=== PATIENT | female | born 1980 | race Caucasian/White ===

== ENCOUNTER 2024-05-24 13:06 | Outpatient (CLI) | payer OTHER, SELFPAY ==
--- NOTE | 2024-05-24 | MM_ITS ---
WS: [id number] BILATERAL 3D TOMOSYNTHESIS DIGITAL SCREENING MAMMOGRAPHY WITH CAD CLINICAL INFORMATION: ANNUAL SCREEN HISTORY: Screening mammogram. No current complaints. COMPARISON: 2012 TECHNIQUE: Bilateral CC and MLO views. FINDINGS: The breasts are composed of heterogeneous fibroglandular density tissue, which can limit the detection of small underlying mass lesions. No suspicious mass, asymmetry, calcifications, or architectural distortion. No evidence of malignancy. Biopsy clips LEFT breast MM/MM scr BI tomosynthesis [id number] IMPRESSION: DENSITY: The breasts are heterogeneously dense, which may obscure small masses. BI-RADS: 2 - Benign FOLLOW UP: 1 Year Follow-up Recommend return to annual screening mammography.
== END 2024-05-24 13:07 | disposition home or self-care (01) ==
LOC: RAD 13:07
PROVIDERS: Family Provider Internal Medicine; PCP Urology; Visit Provider Nurse Practitioner
DX: Z12.31 Encounter for screening mammogram for malignant neoplasm of breast (principal)
CPT/HCPCS: 77063; 77067

== ENCOUNTER 2024-10-19 15:43 | Emergency (ER) | payer OTHER, SELFPAY ==
[2024-10-19 15:49] VITALS: BP 134/88; PULSE 102; RESP 16; TEMP 36.5; O2SAT 100; BMI 25.0
--- OUTSIDE RECORDS SUMMARY | 2024-10-19 15:52 | XMS_ITS | Clinical Summary ---
Author Organization [facility] Address [address] [place]: Epic Prelude ADT [place] [address] Care Team Providers Care Supervisor Safety Deposit Name Role Phone Derrick Zacarias MD Primary Care Provider [phone] Allergies Active Allergy Reactions Criticality Noted Date Comments Cyclobenzaprine Other (See Comments) 08/28/2009 ineffective Sumatriptan Other (See Comments) 10/08/2011 Ineffective, and has a sensation that throat is swelling. Medications buPROPion HCL SR 150 mg tablet,12 hr sustained-relea se (WELLBUTRIN SR)Indications: Hyperparathyroi dism, unspecified,Kaye linh hyperparathyroi dism,Calculus of kidney,Former smoker Take 150 mg by mouth 2 times daily. Active dihydroergotami ne mesylate (DIHYDROERGOTAM INE BOTH NOSTRIL)Indicat ions:Hyperparat hyroidism, unspecified,Kaye linh hyperparathyroi dism,Calculus of kidney,Former smoker Administer 4 mg in each nostril. Active hydrOXYzine HCL (ATARAX) 25 mg tabletIndicatio ns:Hyperparathy roidism, unspecified,Kaye linh hyperparathyroi dism,Calculus of kidney,Former smoker Take 25 mg by mouth daily at bedtime. Active venlafaxine 75 mg Extended Release 24 hour tabletIndicatio ns:Hyperparathy roidism, unspecified,Kaye linh hyperparathyroi dism,Calculus of kidney,Former smoker Take 75 mg by mouth daily with breakfast. Active Active Problems Problem Noted Date Diagnosed Date Migraine 10/25/2009 Fibromyalgia 08/28/2009 Anxiety reaction 08/28/2009 PTSD (post-traumatic stress disorder) 08/28/2009 Spasm of muscle 07/17/2009 Chronic back pain 07/01/2009 Encounters Date Type Department Care Team Description 10/03/2024 External Device Data [facility] ABSTRACTION Provider, Abstract 09/07/2024 External Device Data [facility] ABSTRACTION Provider, Abstract 09/06/2024 External Device Data [facility] ABSTRACTION Provider, Abstract 09/05/2024 External Device Data [facility] ABSTRACTION Provider, Abstract 08/01/2024 External Device Data [facility] ABSTRACTION Provider, Abstract 08/01/2024 External Device Data [facility] ABSTRACTION Provider, Abstract 08/01/2024 External Device Data [facility] ABSTRACTION Provider, Abstract 07/31/2024 Results Follow-Up [facility] [address] [place] [phone] Marcela Escobedo MD VITAMIN D 25 HYDROXY, PTH INTACT, COMPREHENSIVE METABOLIC PANEL, PROTEIN ELECTROPHORESIS W/REFLEX,SERUM 07/28/2024 1:40 PM CDT Office Visit [facility] [address] [place] [phone] Marcela Escobedo MD Hyperparathyroidism, unspecified (Primary Dx); Primary hyperparathyroidism; Calculus of kidney; Former smoker from Last 3 Months Family History Medical History Relation Name Comments Healthy Father Other Maternal Grandfather macular degeneration Respiratory Disease Maternal Grandfather Other Maternal Grandmother fibromy algia Healthy Mother Diabetes Paternal Grandfather Heart Disease Paternal Grandfather Heart Disease Paternal Grandmother Other Paternal Grandmother catarac ts Breast Cancer Neg Hx Colon Cancer Neg Hx Relation Name Status Comments Father Maternal Grandfather Alive Maternal Grandmother Alive Mother Paternal Grandfather Paternal Grandmother Social History Tobacco Use Types Packs/Day Years Used Date Smoking Tobacco: Every Day Cigarettes Tobacco Cessation:Ready to Q uit: Not Asked; Counseling Given: Not Answered Comments:Quit smoking: off and on Alcohol Use Standard Drinks/Week Comments No 0 (1 standard drink = 0.6 oz pur e alcohol) Comments Unknown Sex and Gender Information Value Date Recorded Sex Assigned at Not on file 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 Gender Identity Not on file Sexual Orientation Not on file Last Filed Vital Signs Vital Sign Reading Time Taken Comments Blood Pressure 110/80 07/28/2024 1:39 PM CDT Pulse - - Temperature - - Respiratory Rate - - Oxygen Saturation - - Inhaled Oxygen Concentration - - Weight 72.1 kg (159 lb) 07/28/2024 1:39 PM CDT Height 167.6 cm (5' 6 ) 07/28/2024 1:39 PM CDT Body Mass Index 25.66 07/28/2024 1:39 PM CDT Plan of Treatment Upcoming Encounters Date Type Department Care Team (Late st Contact Info) Description 01/29/2025 2:30 PM CDT Office Visit [facility] [address] [place] [address] Marcela Escobedo MD [address] [place] [address] Health Maintenance Due Date Last Done Comments Pre-Diabetes and Diabetes Screening 1981 Traditional Medicare (ACO) Annual Wellness Visit 2000 HPV/Cotest (21-29) 2002 HPV/Cotest (30-65) 2011 CERVICAL CANCER SCREENING 09/24/2012 PAP SMEAR 09/24/2012 09/24/2009 BREAST CANCER SCREENING 12/12/2022 12/13/19 22, 10/14/2011, 10/14/2011 DTAP/TDAP/TD VACCINES (2 - Td or Tdap) 02/22/2023 02/22/2013 INFLUENZA VACCINE (#1) 2024 HEPATITIS B VACCINES Completed 07/05/1998, 02/07/1998, 12/20/1997 HPV VACCINES Aged Out No longer eligi ble based on patient's age to complete this topic Procedures Procedure Name Priority Date/Time Associated Diagnosis Comments COMPREHENSIVE METABOLIC PANEL Routine 07/28/2024 2:20 PM CDT Hyperparathyroidis m, unspecified Primary hyperparathyroidis m Calculus of kidney Former smoker PTH INTACT Routine 07/28/2024 2:20 PM CDT Hyperparathyroidis m, unspecified Primary hyperparathyroidis m Calculus of kidney Former smoker VITAMIN D 25 HYDROXY Routine 07/28/2024 2:20 PM CDT Hyperparathyroidis m, unspecified Primary hyperparathyroidis m Calculus of kidney Former smoker PROTEIN ELECTROPHORESIS W/REFLEX,SERUM Routine 07/28/2024 2:20 PM CDT Hyperparathyroidis m, unspecified Primary hyperparathyroidis m Calculus of kidney Former smoker MAMMO 3D REGINA DIAGNOSTIC BILAT W OR WO CAD Routine 12/12/2021 2:56 PM CDT Other specified disorders of breast from Last 3 Months or Most Recently Relevant to Health Maintenance Results * VITAMIN D 25 HYDROXY (07/28/2024 2:20 PM CDT) VITAMIN D, 25 OH, TOTAL 34 30 - 100 ng/mL [facility] Comment: Vitamin D Status 25-OH Vitamin D: Deficiency: <20 ng/mL Insufficiency: 20 - 29 ng/mL Optimal: > or = 30 ng/mL For 25-OH Vitamin D testing on patients on D2-supplementation and patients for whom quantitation of D2 and D3 fractions is required, the [facility] 25-OH VIT D, (D2,D3), LC/MS/MS is recommended: order code 53099 (patients >2yrs). See Note 1 Note 1 For additional information, please refer to http://education.Fanaticall/faq/WEE905 (This link is being provided for informational/ educational purposes only.) FASTING:NO FASTING: NO Test Performed at: [facility] [address] [place] [address] Socorro Degroot MD Blood 07/28/2024 2:20 PM CDT 07/28/2024 2:26 PM CDT us Marcela Escobedo MD CHEMISTRY ORDERABLES Final Resul t [facility] [phone] [facility] [address] [place] [address] * PROTEIN ELECTROPHORESIS W/REFLEX,SERUM (07/28/2024 2:20 PM CDT) TOTAL PROTEIN 6.9 6.1 - 8.1 g/dL [facility] ALBUMIN SPE 4.2 3.8 - 4.8 g/dL [facility] ALPHA 1 GLOBULIN SPE 0.3 0.2 - 0.3 g/dL [facility] ALPHA 2 GLOBULIN SPE 0.8 0.5 - 0.9 g/dL [facility] Beta 1 Globulin 0.5 0.4 - 0.6 g/dL [facility] Beta 2 Globulin 0.4 0.2 - 0.5 g/dL [facility] GAMMA GLOBULIN 0.9 0.8 - 1.7 g/dL [facility] SPE INTERP [facility] Comment: No restricted band (M-spike) seen. FASTING:NO FASTING: NO Test [facility]formed at: [facility] [address] Socorro Degroot MD Blood 07/28/2024 2:20 PM CDT 07/28/2024 2:26 PM CDT us Marcela Escobedo MD CHEMISTRY ORDERABLES Final Resul t [facility] [phone] [facility] [address] * PTH INTACT (07/28/2024 2:20 PM CDT) Pathologist [facility] PTH INTACT 39 16 - 77 pg/mL [facility] Comment: Interpretive Guide Intact PTH Calcium ------- Normal Parathyroid Normal Normal Hypoparathyroidism Low or Low Normal Low Hyperparathyroidism Primary Normal or High High Secondary High Normal or Low Tertiary High High Non-Parathyroid Hypercalcemia Low or Low Normal High Test Performed at: [facility] [address] Socorro Degroot MD Blood 07/28/2024 2:20 PM CDT 07/28/2024 2:26 PM CDT us Marcela Escobedo MD CHEMISTRY ORDERABLES Final Resul t [facility] [phone] [facility] [address] [address] [facility] [place] [address] * (ABNORMAL) COMPREHENSIVE METABOLIC PANEL (07/28/2024 2:20 PM CDT) Pathologist [facility] GLUCOSE 90 65 - 139 mg/dL [facility] Comment: Non-fasting reference interval BUN 12 7 - 25 mg/dL [facility] CREATININE 0.70 0.50 - 0.99 mg/dL [facility] GFR 110 > OR = 60 mL/min/1. 73m2 [facility] BUN/CREAT RATIO SEE NOTE: 6 - (calc) [facility] Comment: Not Reported: BUN and Creatinine are within reference range. SODIUM 140 135 - 146 mmol/L [facility] POTASSIUM 3.7 3.5 - 5.3 mmol/L [facility] CHLORIDE 103 98 - 110 mmol/L [facility] CO2 30 20 - 32 mmol/L [facility] CALCIUM 9.4 8.6 - 10.2 mg/dL [facility] TOTAL PROTEIN 7.0 6.1 - 8.1 g/dL [facility] ALBUMIN 4.6 3.6 - 5.1 g/dL [facility] GLOBULIN 2.4 1.9 - 3.7 g/dL (calc) [facility] ALBUMIN/GLOBULIN RATIO 1.9 1.0 - 2.5 (calc) [facility] BILIRUBIN TOTAL 0.3 0.2 - 1.2 mg/dL [facility] ALKALINE PHOSPHATASE 141(H) 31 - 125 U/L [facility] AST 24 10 - 30 U/L [facility] ALT 25 6 - 29 U/L [facility] Comment: FASTING:NO FASTING: NO Test Performed at: [facility] [address] [place] [address] Nicko Beltran Blood 07/28/2024 2:20 PM CDT 07/28/2024 2:26 PM CDT us Marcela Escobedo MD CHEMISTRY ORDERABLES Final Resul t [facility] [phone] [facility] [address] [place] [address] * (ABNORMAL) MAMMO DIAG BILAT 3D REGINA W OR WO CAD (12/12/2021 2:56 PM CDT) Anatomical Region Laterality Modality Breast Bilateral Mammography 12/12/2021 2:56 PM CDT Impressions 12/12/2021 3:32 PM CDT IMPRESSION: BI-RADS 4. Suspicious calcifications left breast. Advise further evaluation with biopsy, this will be amenable to stereotactic guidance. Findings were discussed with the patient following completion of the exam. Patient was hesitant for proceeding with the biopsy, however will think about the biopsy and left the schedulers know. Procedure will be scheduled. [id number] Narrative 12/12/2021 3:32 PM CDT EXAMINATION: Bilateral diagnostic mammography with tomosynthesis. Films were reviewed by CAD. Ultrasound right breast and bilateral axilla. INDICATION: Right breast lump COMPARISON: Mammograms from 2012; left side FINDINGS: The breast tissue is extremely dense, which can limit the sensitivity of mammography. Right breast: No mammographic suspicious findings in the region of lump right breast. Ultrasound shows dense fibroglandular breast tissue with no suspicious sonographic findings. Left breast: Biopsy changes with marker in the left anterior to mid superior breast noted. There are adjacent calcifications that do not appear suspicious. There is new grouping of calcifications in the left mid to posterior upper outer breast that for further evaluated by spot magnification images. On the spot magnification images there is a 4.2 mm grouping of fine heterogenous calcifications present 6.7 cm superior to nipple at approximately 11 to 12:00 position. Ultrasound was done. Ultrasound left breast in the region of calcifications shows no sonographic suspicious findings. Ultrasound bilateral axilla show no abnormal lymph nodes. Procedure Note Kristie Hartley MD - 12/12/2021 EXAMINATION: Bilateral diagnostic mammography with tomosynthesis. Films were reviewed by CAD. Ultrasound right breast and bilateral axilla. INDICATION: Right breast lump COMPARISON: Mammograms from 2012; left side FINDINGS: The breast tissue is extremely dense, which can limit the sensitivity of mammography. Right breast: No mammographic suspicious findings in the region of lump right breast. Ultrasound shows dense fibroglandular breast tissue with no suspicious sonographic findings. Left breast: Biopsy changes with marker in the left anterior to mid superior breast noted. There are adjacent calcifications that do not appear suspicious. There is new grouping of calcifications in the left mid to posterior upper outer breast that for further evaluated by spot magnification images. On the spot magnification images there is a 4.2 mm grouping of fine heterogenous calcifications present 6.7 cm superior to nipple at approximately 11 to 12:00 position. Ultrasound was done. Ultrasound left breast in the region of calcifications shows no sonographic suspicious findings. Ultrasound bilateral axilla show no abnormal lymph nodes. IMPRESSION: BI-RADS 4. Suspicious calcifications left breast. Advise further evaluation with biopsy, this will be amenable to stereotactic guidance. Findings were discussed with the patient following completion of the exam. Patient was hesitant for proceeding with the biopsy, however will think about the biopsy and left the schedulers know. Procedure will be scheduled. [id number] Crystal [facility]OK[facility] MAMMO ORDERABLES Fi nal Result from Last 3 Months or Most Recently Relevant to Health Maintenance Insurance MEDICARE PART A AND B * Guarantor: [employer] [facility] [employer] (C) Account Type Relation to Patient Date of Phone Billing Address Corporate Other DEFAULT ADDRESS [address] [employer] * Guarantor: [employer] M (C) Account Type Relation to Patient Date of Phone Billing Address [employer] Other DEFAULT ADDRESS [address] [employer] Care Teams Supervisor Safety Deposit Relationship Specialty Start Date End Date Derrick Zacarias MD [address] [address] PCP - General Family Practice 01/14/16
--- NOTE | 2024-10-19 17:06 | XRR_ITS ---
PROCEDURE INFORMATION: Exam: XR Chest Exam date and time: 10/19/2024 5:14 PM Age: 44 years old Clinical indication: Fever TECHNIQUE: Imaging protocol: Radiologic exam of the chest. Views: 1 view. COMPARISON: CT abdomen pelvis con [id number] 11/11/2020 2:01 PM FINDINGS: Lungs: Unremarkable. No consolidation. Calcified granuloma in the right apex medially. Pleural spaces: Unremarkable. No pleural effusion. No pneumothorax. Heart/Mediastinum: Unremarkable. No cardiomegaly. Bones/joints: Unremarkable. XR/XR chest 1V portable [id number] IMPRESSION: No acute findings.
[2024-10-19 17:56] LABS: Hematocrit 46.2 % (36-47); Hemoglobin 15.00 g/dL (11.27-16.99); Mean Corpuscular HGB Conc 32.5 g/dL (30-55); Mean Corpuscular Hemoglobin 31.1 pg (27-33); Mean Corpuscular Volume 95.7 fl (85-98); Nucleated Red Blood Cells % 0 %; Platelet Count 323 10^3/cmm (157-399); Red Blood Count 4.83 10^6/uL (3.85-5.65); White Blood Count 7.57 10^3/uL (3.29-11.43)
[2024-10-19] MEDS: ondansetron 2 mg/ML SDV 2 mL 4 MG IVP (18:13)
[2024-10-19 18:18] LABS: Alanine Aminotransferase 23 U/L (0-33); Albumin Level 4.2 g/dL (3.5-5.2); Alkaline Phosphatase 192 U/L (35-105); Anion Gap 18.4 (5-19); Aspartate Amino Transferase 20 U/L (0-32); Blood Urea Nitrogen 10 mg/dL (6-20); Calcium 8.8 mg/dL (8.5-10.5); Carbon Dioxide 20 mmol/L (22-29); Chloride 104 mmol/L (98-107); Creatinine Clr Calc Pharmacy 145.8971; Globulin 2.9 g/dL (1.3-4.6); Glucose 96 mg/dL (65-115); Osmolality Calculated 287 mOsm/kg (285-295); Potassium 3.4 mmol/L (3.5-5.1); Sodium 139 mmol/L (136-145); Total Protein 7.1 g/dL (6.6-8.7)
[2024-10-19 18:23] VITALS: BP 118/78; PULSE 84; TEMP 37.1; O2SAT 100
[2024-10-19 18:30] VITALS: BP 104/62; PULSE 85; O2SAT 100
[2024-10-19 18:38] LABS: Respiratory Syncytial Virus Ce NEGATIVE (Negative); SARS-CoV-2 PCR NEGATIVE (Negative)
[2024-10-19 20:18] VITALS: BP 116/79; PULSE 90; RESP 18; O2SAT 98
[2024-10-19] MEDS: morphine 4 mg/mL SDV 1 mL IVP (20:57)
--- NOTE | 2024-10-19 21:10 | ED_ITS ---
HPI - Headache 2 General: Chief Complaint: Headache Stated Complaint: va sent, ENNIS, stiff neck, n/d Time Seen by Provider: 10/19/24 16:34 History of Present Illness: 44-year-old female patient presents to e [facility] department with headache generalized malaise. Patient states that she has history of migraine headaches. And her headache feels like a typical migraine headache however her generalized malaise body aches all over weakness and tiredness is not normal for her patient states she has had multiple tick bites over the last several weeks and is concerned that she has tickborne illness. Patient denies any rash, fever, abdominal pain, nausea vomiting diarrhea. Related Data Home Medications ?Medication ?Instructions ?Recorded ?Confirmed ibuprofen 600 mg tablet 600 mg PO Q6H PRN Fever Or P ain 12/03/20 10/19/24 Previous Rx's ?Medication ?Instructions ?Recorded doxycycline hyclate 100 mg capsule 100 mg PO BID 10 da ys #20 caps 10/19/24 Allergies Allergy/AdvReac Type Severity Reaction Status Date / Time cyclobenzaprine Allergy Unknown Verified 10/19/24 15:53 sumatriptan Allergy Unknown Verified 10/19/24 15:53 zolmitriptan (From [facility]) Allergy Unknown Verified 10/19/24 15:53 Review of Systems 2 General: Reports: 10 or more systems reviewed and unremarkable except in HPI and below Physical Exam 2 Const: COMMON NORMALS: no acute distress, patient oriented x3, no limitations, healthy appearing and alert GENERAL APPEARANCE: cooperative, comfortable, well kempt and well developed; not ill appearing ORIENTATION/CONSCIOUSNESS: Yes awake, Yes oriented to person, Yes oriented to place and Yes oriented to time HENMT: COMMON NORMALS: normocephalic, atraumatic, hearing grossly normal bilaterally, Normal external nose present, Normal nasal mucous membranes and turbinates present and moist oral mucous membranes HEAD & SCALP: normal to inspection, normocephalic and atraumatic FACE & SINUS: normal facial exam, sinuses nontender and face symmetric NOSE: Normal external nose present, Normal nares present, Normal nasal mucous membranes and turbinates present, No nasal discharge present and Abnormal external nose present Eye: COMMON NORMALS: EOMs intact bilaterally and no scleral icterus GENERAL EYE: appearance normal, both eyes and all related structures Neck/C-Spine: COMMON NORMALS: full ROM, no lymphadenopathy, supple, no meningeal signs, no JVD and Thyroid normal GENERAL: Yes normal visual inspection and Yes trachea midline THYROID: Thyroid normal CERVICAL SPINE: Yes cervical ROM normal Lymph: LYMPHATIC: no lymphadenopathy noted and no lymphedema noted Chest: COMMONS NORMALS: normal inspection of the chest and normal palpation of entire chest wall Resp: COMMON NORMALS: normal respiratory effort, No retractions, No use of accessory muscles and clear to auscultation bilaterally EFFORT & INSPECTION: Yes able to speak in complete sentences and Yes symmetric chest movement A USCULTATION: clear to auscultation bilaterally Cardio: COMMON NORMALS: no JVD, regular rate and regular rhythm RATE: r egular rate RHYTHM: regular rhythm GI: COMMON NORMALS: Normal to inspection, nondistended, normoactive bowel sounds present, Soft to palpation and non-tender PALPATION: Yes Soft to palpation : COMMON NORMALS: Yes no CVA tenderness BLADDER/KIDNEY EXAM: Yes no CVA tenderness Back/Pelvis: COMMON NORMALS: no CVA tenderness, thoracic and lumbar spine normal to inspection, no thoracic nor lumbar tenderness and thoraco-lumbar ROM normal THORACIC SPINE/UPPER BACK: Yes normal to inspection LUMBAR SPINE/LOWER BACK: Yes normal to inspection Extremity: COMMON NORMALS: normal to inspection, full ROM and capillary refill normal GENERAL: Yes normal exam except as noted Neuro: COMMON NORMALS: patient oriented x3 SENSORIUM/ORIENTATION: Yes alert, Yes oriented to person, Yes oriented to place and Yes oriented to time MENINGEAL SIGNS: Yes no meningeal signs CRANIAL NERVES: Yes CN normal except as noted SPEECH: speech normal GAIT: Yes Normal gait present Psych: COMMON NORMALS: mental status grossly normal, Normal thought process present, cooperative, normal affect, speech normal, activity/motor behavior normal, denies hallucinations, denies homicidal ideation and denies suicidal ideation APPEARANCE: Yes grossly normal and Yes well kempt ATTITUDE: Yes calm ACTIVITY/MOTOR BEHAVIOR: Yes appropriate eye contact SPEECH: Yes normal speech THOUGHT PROCESS: Normal thought process present THOUGHT CONTENT: Yes Normal thought content present ATTENTION/CONCENTRATION: Yes attention grossly intact MEMORY/COGNITION: Yes memory grossly intact I NSIGHT: Good insight present (Psych) JUDGEMENT: Good judgement present (Psych) Skin: COMMON NORMALS: no rashes or lesions noted, no wounds, turgor normal, no jaundice, no petechiae and no mottling GENERAL SKIN EXAM: no rashes or lesions noted and turgor normal Course 2 Vital Signs: Vital signs: Vital Signs Temperature 98.7 F 10/19/24 18:23 Pulse Rate 97 10/19/24 21:28 Respiratory Rate 18 10/19/24 21:28 Blood Pressure 116/81 10/19/24 21:28 Pulse Oximetry 95 10/19/24 21:28 Oxygen Delivery Me thod Room Air 10/19/24 15:49 MDM - Headache Medical Decision Making Patient is well-appearing nontoxic in no acute distress. 44-year-old female patient presents to emergency department with headache generalized malaise. Patient states that she has history of migraine headaches. And her headache feels like a typical migraine headache however her generalized malaise body aches all over weakness and tiredness is not normal for her patient states she has had multiple tick bites over the last several weeks and is concerned that she has tickborne illness. Patient does not have any signs of meningeal irritation patient denies any rash, fever, abdominal pain, nausea vomiting diarrhea. Abdomen is soft and nontender patient has no focal neurodeficits noted. Patient does state that this is like a typical migraine headache for her therefore I do not feel like CT imaging is warranted at this time patient was given morphine for pain and states that this did help her head patient's headache went from a pain scale of 8 to a pain of 2 patient has had no episodes of nausea vomiting while here in the emergency department. Patient has no rashes noted. Patient's vital signs are stable patient is afebrile I will send a tick panel off for testing for tickborne illness but given patient's presenting complaints and recent tick bites I will go ahead and start her on doxycycline at this time. I discussed with patient return precautions as well as home care and follow-up patient states that she is ready to go home. Patient is medically cleared and appropriate for discharge Lab Data 10/19/24 17:50 10/19/24 17:50 Radiology Impressions Chest X-Ray 10/19/24 17:06 IMPRESSION: No acute findings. Laboratory Results WBC 7.57 10^3/uL (3.29-11.43) 10/19/24 17:50 RBC 4.83 10^6/uL (3.85-5.65) 10/19/24 17:50 Hgb 15.00 g/dL (11.27-16.99) 10/19/24 17:50 Hct 46.2 % (36-47) 10/19/24 17:50 MCV 95.7 fl (85-98) 10/19/24 17:50 MCH 31.1 pg (27-33) 10/19/24 17:50 MCHC 32.5 g/dL (30-55) 10/19/24 17:50 RDW 12.9 % (12.1-15.1) 10/19/24 17:50 Plt Count 323 10^3/cmm (157-399) 10/19/24 17:50 MPV 10.3 fL (7.4-10.4) 10/19/24 17:50 Neut % (Auto) 71.8 % 10/19/24 17:50 Lymph % (Auto) 18.6 % 10/19/24 17:50 Burke % (Auto) 7.3 % 10/19/24 17:50 Eos % (Auto) 2.1 % 10/19/24 17:50 Baso % (Auto) 0.1 % 10/19/24 17:50 Neut # (Auto) 5.43 10^3/uL (1.8-7.7) 10/19/24 17:50 Lymph # (Auto) 1.4 10^3/uL (0.8-4.8) 10/19/24 17:50 Burke # (Auto) 0.6 10^3/uL (0.2-0.9) 10/19/24 17:50 Eos # (Auto) 0.2 10^3/uL (0.0-0.8) 10/19/24 17:50 Baso # (Auto) 0.0 10^3/uL (0.0-0.1) 10/19/24 17:50 Nucleated RBC % (auto) 0 % 10/19/24 17:50 Nucleated RBCs # 0.0 /100WBC 10/19/24 17:50 Sodium 139 mmol/L (136-145) 10/19/24 17:50 Potassium 3.4 mmol/L (3.5-5.1) L 10/19/24 17:50 Chloride 104 mmol/L (98-107) 10/19/24 17:50 Carbon Dioxide 20 mmol/L (22-29) L 10/19/24 17:50 Anion Gap 18.4 (5-19) 10/19/24 17:50 BUN 10 mg/dL (6-20) 10/19/24 17:50 Creatinine 0.5 mg/dL (0.5-0.9) 10/19/24 17:50 GFR Calculation 134.7 mL/min (90-130) H 10/19/24 17:50 Glucose 96 mg/dL (65-115) 10/19/24 17:50 Calculated Osmolality 287 mOsm/kg (285-295) 10/19/24 17:50 Calcium 8.8 mg/dL (8.5-10.5) 10/19/24 17:50 Total Bilirubin 0.2 mg/dL (0.15-1.2) 10/19/24 17:50 AST 20 U/L (0-32) 10/19/24 17:50 ALT 23 U/L (0-33) 10/19/24 17:50 Alkaline Phosphatase 192 U/L (35-105) H 10/19/24 17:50 Total Protein 7.1 g/dL (6.6-8.7) 10/19/24 17:50 Albumin 4.2 g/dL (3.5-5.2) 10/19/24 17:50 Globulin 2.9 g/dL (1.3-4.6) 10/19/24 17:50 Adenovirus (PCR) Cancelled 10/19/24 17:17 C. pneumoniae DNA (PCR) Cancelled 10/19/24 17:17 Coronavirus 229E (PCR) Cancelled 10/19/24 17:17 Human Metapneumovir PCR Cancelled 10/19/24 17:17 Influenza A (H1) PCR Cancelled 10/19/24 17:17 Influenza A (PCR) Negative (Negative) 10/19/24 17:17 Influ A (H1/09) PCR Cancelled 10/19/24 17:17 Influenza A (H3) PCR Cancelled 10/19/24 17:17 Influenza Type A (PCR) Cancelled 10/19/24 17:17 Influenza Type B (PCR) Cancelled 10/19/24 17:17 Influenza Type B (PCR) Negative (Negative) 10/19/24 17:17 M. pneumoniae (PCR) Cancelled 10/19/24 17:17 Parainfluenza 1 (PCR) Cancelled 10/19/24 17:17 Parainfluenza 2 (PCR) Cancelled 10/19/24 17:17 Parainfluenza 3 (PCR) Cancelled 10/19/24 17:17 Parainfluenza 4 (PCR) Cancelled 10/19/24 17:17 RSV (PCR) Negative (Negative) 10/19/24 17:17 RSV Type A (PCR) Cancelled 10/19/24 17:17 RSV Type B (PCR) Cancelled 10/19/24 17:17 Entero/Rhino (PCR) Cancelled 10/19/24 17:17 SARS-CoV-2 (PCR) Cancelled 10/19/24 17:17 SARS-CoV-2 (PCR) Negative (Negative) 10/19/24 17:17 No radiology studies performed this visit Discharge Plan Discharge Patient Disposition: Home Clinical Impression: Headache Qualifiers: Headache type: unspecified Headache chronicity pattern: acute headache I ntractability: intractable Qualified Code(s): R51.9 - Headache, unspecified Tick bite Qualifiers: Encounter type: initial encounter Site of tick bite: unspecified site Qualified Code(s): W57.XXXA - Bitten or stung by nonvenomous insect and other nonvenomous arthropods, initial encounter Condition: Stable Prescriptions: New doxycycline hyclate 100 mg capsule 100 mg PO BID 10 Days Qty: 20 0RF No Action ibuprofen 600 mg tablet 600 mg PO Q6H PRN (Reason: Fever Or Pain) Discharge Orders: Discharge ED (Routine); Ordered 10/19/24 Ordered By: Doris Deleon Referrals: Crystal Ocampo FNP [Primary Care Provider, Nurse Practitioner] Discharge Diet: Advance as tolerated Discharge Activity: Increase activity as tolerated Patient Instructions: Tick Bite (ED), Acute Headache (ED), Opioid Safety, Pain Management, Patient Portal & Aleksander Instructions Activity Restrictions/Additional Instructions: Take meds as prescribed Return to ER if You have trouble walking or moving your legs. You have joint pain, muscle pain, or muscle weakness within 1 month of a tick bite. You have a fever, chills, headache, or rash. Worsening headache or any other concerns Print Language: Dutch Coding Level of Care Code ED [employer] Operator for [employer]
[2024-10-19 21:28] VITALS: BP 116/81; PULSE 97; RESP 18; O2SAT 95
[2024-10-25 19:55] LABS: RMSF IGG NOT DETECTED; RMSF IGM NOT DETECTED
== END 2024-10-19 21:29 | disposition home or self-care (01) ==
PROVIDERS: Emergency Provider Registered Nurse; PCP Nurse Practitioner
DX: R51.9 Headache, unspecified (principal); W57.XXXA Bitten or stung by nonvenomous insect and other nonvenomous arthropods, initial encounter; Z11.52 Encounter for screening for COVID-19
CPT/HCPCS: 36415; 71045; 80053; 85025; 86618; 86666; 86757; 87637; 96361; 96374; 96375; 99284; J1100; J1885; J2270; J2405; J7030